=== PATIENT | male | born 1965 | race African-American/Black ===

== ENCOUNTER 2020-05-31 17:32 | Emergency (ER) | payer OTHER ==
[2020-05-31 18:07] VITALS: BMI 34.0
[2020-05-31 18:26] VITALS: BP 176/100; PULSE 99
[2020-05-31] MEDS ORDERED: ASPIRIN 81 MG CHEWABLE TABLETS PO ONE (19:48)
[2020-05-31] MEDS ORDERED: HEPARIN NA (PORCINE) 5,000 UNITS/ML 1ML VIAL IVPUSH PRN ×3 (19:59)
[2020-05-31] MEDS ORDERED: HEPARIN INFUSION - 25,000 UNITS/500 ML INFUS.BAG IVPB SCH (20:00)
[2020-05-31] MEDS ORDERED: HEPARIN NA (PORCINE) 5,000 UNITS/ML 1ML VIAL ONE (20:03)
[2020-05-31] MEDS ORDERED: ASPIRIN 81 MG CHEWABLE TABLETS ONE (20:03)
[2020-05-31] MEDS ORDERED: HEPARIN INFUSION - 25,000 UNITS/500 ML INFUS.BAG IVPB ONE (20:04)
[2020-05-31] MEDS ORDERED: HEPARIN NA (PORCINE) 5,000 UNITS/ML 1ML VIAL IVPUSH ONE (20:04)
[2020-05-31 20:15] LABS: BASO % 0.2 % (0-2.0); HEMATOCRIT 40.2 % (35.4-49); HEMOGLOBIN 13.2 GM/dL (11.7-16.9); MCH 27.7 pg (25.7-33.7); MEAN CELL VOLUME 83.9 fl (80-96); MEAN PLT VOLUME 9.5 fl (7.5-11.1); MONO % 6.4 % (3.8-10.2); NEUT % 78.4 % (42.8-82.8); PLATELET COUNT 179 K/MM3 (134-434); RBC 4.79 M/mm3 (4.00-5.60); WHITE BLOOD COUNT 6.7 K/mm3 (4.0-10.0)
[2020-05-31 20:22] LABS: INR 1.12 (0.83-1.09); PROTHROMBIN TIME (PATIENT) 13.5 SEC (9.7-13.0)
[2020-05-31 20:25] LABS: ACTIVATED PTT 33.1 SECONDS (25.2-36.5)
[2020-05-31 20:36] LABS: CHLORIDE 102 mmol/L (98-107); SODIUM 136 mmol/L (136-145)
[2020-05-31 20:38] LABS: CALCIUM 8.5 mg/dL (8.5-10.1)
[2020-05-31 20:39] VITALS: TEMP 98
[2020-05-31 20:39] LABS: ALBUMIN 3.4 g/dl (3.4-5.0); ANION GAP 5 MMOL/L (8-16); BLOOD UREA NITROGEN 18.7 mg/dL (7-18); CO2 29 mmol/L (21-32); GLUCOSE,RANDOM 117 mg/dL (74-106)
[2020-05-31 20:41] LABS: BILIRUBIN,DIRECT 0.2 mg/dL (0.0-0.2)
[2020-05-31 20:42] LABS: CREATININE 1.3 mg/dL (0.55-1.3); SGOT/AST 32 U/L (15-37); SGPT/ALT 26 U/L (13-61)
[2020-05-31 20:43] LABS: BILIRUBIN,TOTAL 0.4 mg/dL (0.2-1); TOT PROT 7.2 g/dl (6.4-8.2)
[2020-05-31 20:44] LABS: ALK PHOS 53 U/L (45-117)
[2020-05-31 21:06] LABS: LDH 433 U/L (87-246)
== END 2020-05-31 20:46 | disposition short-term general hospital (02) ==
LOC: JER 17:32
PROC: 3E033NZ Introduction of Analgesics, Hypnotics, Sedatives into Peripheral Vein, Percutaneous Approach (ICD-10-PCS; principal; 2020-05-31)
DX: I21.3 ST elevation (STEMI) myocardial infarction of unspecified site (principal)
CPT/HCPCS: 36415; 71045-TC-FY; 80053; 82248; 82550; 82553; 82728; 83605; 83615; 84484; 85025; 85610; 85730; 86140; 87040; 93005; 93010; 99285-25; C9803; J1644; U0003